=== PATIENT | male | born 2005 | race Hispanic/Latino ===

== ENCOUNTER 2024-08-06 18:59 | Emergency (ER) | payer MEDICAID ==
[~2024-08-06] VITALS: Ht 167.6 cm; Wt 73.9 kg
[2024-08-06 19:03] VITALS: TEMP 98.6
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
[2024-08-06] MEDS: acetaMINOPHEN 500 MG TABLET PO SCH (19:28)
--- NOTE | 2024-08-06 19:42 | HMCIMG ---
SHOULDER COMP 2+VWS RT HISTORY: Pain COMPARISON: None TECHNIQUE: 2 images of the right shoulder were obtained. FINDINGS: There is no acute displaced fracture or dislocation. IMPRESSION: 1. Findings as described above.
[2024-08-06 20:10] VITALS: BP 132/68; PULSE 90; RESP 18; O2SAT 98
[2024-08-06] MEDS ORDERED: IBUP-2077 PO (20:30)
== END 2024-08-06 20:58 | disposition home or self-care (01) ==
LOC: EDH 18:59
DX: S40.011A Contusion of right shoulder, initial encounter (principal); S50.811A Abrasion of right forearm, initial encounter; G80.9 Cerebral palsy, unspecified; Z98.890 Other specified postprocedural states; V49.9XXA Car occupant (driver) (passenger) injured in unspecified traffic accident, initial encounter; Y93.89 Activity, other specified; Y92.488 Other paved roadways as the place of occurrence of the external cause; Y99.8 Other external cause status
CPT/HCPCS: 73030; 99283